=== PATIENT | male | born 2000 | race Caucasian/White ===

== ENCOUNTER 2023-10-20 06:00 | Outpatient (CLI) | payer OTHER, SELFPAY | END 2023-10-20 06:01 | disposition home or self-care (01) | LOC: SPT 10-21 13:55 | PROVIDERS: Visit Provider Podiatrist Foot & Ankle Surgery | DX: Z46.89 Encounter for fitting and adjustment of other specified devices (principal); M25.371 Other instability, right ankle | CPT/HCPCS: 97760; L1902 ==

== ENCOUNTER → 2023-10-20 10:04 | Outpatient (BNVA) | payer OTHER, SELFPAY | PROVIDERS: Family Provider Pediatrics Adolescent Medicine; PCP Pediatrics Adolescent Medicine; Visit Provider Podiatrist Foot & Ankle Surgery | DX: M25.371 Other instability, right ankle; S93.491A Sprain of other ligament of right ankle, initial encounter; X58.XXXA Exposure to other specified factors, initial encounter | CPT/HCPCS: 73610 ==

== ENCOUNTER 2023-11-04 15:07 | Outpatient (RCR) | payer OTHER, SELFPAY | END 2023-11-09 23:59 | disposition home or self-care (01) | LOC: SPT 15:07 | PROVIDERS: PCP Pediatrics Adolescent Medicine; Visit Provider Podiatrist Foot & Ankle Surgery | DX: M25.371 Other instability, right ankle (principal) | CPT/HCPCS: 97110; 97161 ==

== ENCOUNTER 2023-11-10 06:00 | Outpatient (RCR) | payer OTHER, SELFPAY | END 2023-12-09 23:59 | disposition home or self-care (01) | LOC: SPT 06:00 | PROVIDERS: PCP Pediatrics Adolescent Medicine; Visit Provider Podiatrist Foot & Ankle Surgery | DX: M25.371 Other instability, right ankle (principal) | CPT/HCPCS: 97110 ==

== ENCOUNTER 2023-12-10 06:00 | Outpatient (RCR) | payer OTHER, SELFPAY | END 2024-01-09 23:59 | disposition home or self-care (01) | LOC: SPT 06:00 | PROVIDERS: PCP Pediatrics Adolescent Medicine; Visit Provider Podiatrist Foot & Ankle Surgery | DX: M25.371 Other instability, right ankle (principal) | CPT/HCPCS: 97110 ==